=== PATIENT | female | born 1970 | race African-American/Black ===

== ENCOUNTER 2019-06-12 16:18 | Inpatient (IN) ==
[2019-06-12] MEDS ORDERED: AZITHROMYCIN 250 MG TABLET PO STA (17:01)
[2019-06-12 18:34] LABS: Hematocrit 40.3 VOL% (35.7-47.0); Hemoglobin 12.8 GM/DL (12.0-16.0); Immature Granulocytes % 0.3 %; Immature Granulocytes Absolute 0.02 #; Lymphocytes # 1.2 10*3/uL (1.4-4.0); Lymphocytes % 19.9 % (21.3-54.2); Mean Corpuscular HGB Conc 31.8 GM/DL (32-36); Mean Corpuscular Volume 89.4 FL (87-102); Mean Platelet Volume 10.7 FL (9.6-12.0); Monocytes % 4.9 % (1.7-12.7); Neutrophils % 74.9 % (38.7-73.9); Platelet Count 224 T/CUMM (130-400); Red Blood Count 4.51 MC/CUMM (3.8-5.5); Red Cell Distribution Width 12.6 % (9.3-17.3); White Blood Count 5.9 T/CUMM (4-12)
[2019-06-12 18:37] LABS: Calcium 8.7 MG/DL (8.5-10.1); Osmolality,Calculated 268.1 MOS/KG (273-304)
[2019-06-12 18:41] LABS: Ferritin 481.4 ng/ml (8-252)
[2019-06-12] MEDS ORDERED: DEXTROSE 10% 250 ML BAG IV PRN (19:24)
[2019-06-12] MEDS ORDERED: GLUCAGON 1 MG VIAL IM PRN (19:24)
[2019-06-12 19:27] LABS: Lymphocytes 19 % (20-55); Platelet Estimate Normal; Segmented Neutrophils 80 % (50-85); Total Cells Counted 100
[2019-06-12] MEDS: cefTRIAXone 1,000 MG in SYRINGE 1 EACH IV SCH (21:43)
[2019-06-12] MEDS: ENOXAPARIN 40 MG/0.4 ML SYRINGE SUBCUT SCH (21:43)
[2019-06-12] MEDS: ZINC SULFATE 220 MG CAPSULE PO SCH (21:43)
[2019-06-12] MEDS: HYDROXYCHLOROQUINE 200 MG TABLET PO SCH (21:43)
[2019-06-13 06:15] LABS: Basophils % 0.2 % (0.0-0.8); Hematocrit 39.5 VOL% (35.7-47.0); Hemoglobin 12.6 GM/DL (12.0-16.0); Immature Granulocytes % 0.5 %; Immature Granulocytes Absolute 0.03 #; Mean Corpuscular HGB Conc 31.9 GM/DL (32-36); Mean Corpuscular Volume 89.6 FL (87-102); Mean Platelet Volume 10.6 FL (9.6-12.0); Monocytes % 4.9 % (1.7-12.7); Neutrophils % 77.4 % (38.7-73.9); Platelet Count 220 T/CUMM (130-400); Red Blood Count 4.41 MC/CUMM (3.8-5.5); Red Cell Distribution Width 12.6 % (9.3-17.3); White Blood Count 5.8 T/CUMM (4-12)
[2019-06-13 06:38] LABS: Band Neutrophils 1 % (0-10); Lymphocytes 16 % (20-55); Platelet Estimate Adequate; Segmented Neutrophils 80 % (50-85); Total Cells Counted 100
[2019-06-13 06:41] LABS: Alanine Aminotransferase 25 U/L (13-56); Albumin 3.1 G/DL (3.4-5.0); Alkaline Phosphatase 69 U/L (45-117); Aspartate Amino Transferase 25 U/L (0-37); Bilirubin,Total < 0.39 MG/DL (0.2-1.0); Blood Urea Nitrogen 10 MG/DL (7-18); Calcium 8.9 MG/DL (8.5-10.1); Estimated Glom Filtration Rate 94 ML/MIN; Glucose 123 MG/DL (74-106); Osmolality,Calculated 269.1 MOS/KG (273-304); Total Protein 8.5 G/DL (6.4-8.3)
[2019-06-13] MEDS: AZITHROMYCIN 250 MG TABLET PO SCH (08:30)
[2019-06-13] MEDS: HYDROXYCHLOROQUINE 200 MG TABLET PO SCH ×2 (08:30→21:42)
[2019-06-13] MEDS: cefTRIAXone 1,000 MG in SYRINGE 1 EACH IV SCH (21:36)
[2019-06-13] MEDS: ENOXAPARIN 40 MG/0.4 ML SYRINGE SUBCUT SCH (21:43)
[2019-06-14 05:48] LABS: Basophils % 0.8 % (0.0-0.8); Eosinophils % 0.3 % (0.00-10.9); Hematocrit 38.9 VOL% (35.7-47.0); Hemoglobin 12.5 GM/DL (12.0-16.0); Immature Granulocytes % 1.1 %; Immature Granulocytes Absolute 0.04 #; Lymphocytes # 1.6 10*3/uL (1.4-4.0); Lymphocytes % 46.2 % (21.3-54.2); Mean Corpuscular HGB Conc 32.1 GM/DL (32-36); Mean Corpuscular Volume 87.8 FL (87-102); Mean Platelet Volume 10.3 FL (9.6-12.0); Monocytes % 8.8 % (1.7-12.7); Neutrophils % 42.8 % (38.7-73.9); Platelet Count 256 T/CUMM (130-400); Red Blood Count 4.43 MC/CUMM (3.8-5.5); Red Cell Distribution Width 12.7 % (9.3-17.3); White Blood Count 3.5 T/CUMM (4-12)
[2019-06-14 06:16] LABS: Albumin 2.8 G/DL (3.4-5.0); Bilirubin,Total 1.1 MG/DL (0.2-1.0); Calcium 8.8 MG/DL (8.5-10.1); Osmolality,Calculated 270.8 MOS/KG (273-304); Total Protein 8.3 G/DL (6.4-8.3)
[2019-06-14 06:30] LABS: Band Neutrophils 2 % (0-10); Lymphocytes 50 % (20-55); Metamyelocytes 1 %; Nucleated Red Blood Cells 1 (0-5); Platelet Estimate Normal; Segmented Neutrophils 41 % (50-85); Total Cells Counted 100
[2019-06-14 06:31] LABS: Hypochromasia 2+
[2019-06-14] MEDS: AZITHROMYCIN 250 MG TABLET PO SCH (08:31)
[2019-06-14] MEDS: ZINC SULFATE 220 MG CAPSULE PO SCH (20:49)
[2019-06-14] MEDS: ENOXAPARIN 40 MG/0.4 ML SYRINGE SUBCUT SCH (20:49)
[2019-06-15 05:44] LABS: Basophils % 0.6 % (0.0-0.8); Eosinophils % 1.2 % (0.00-10.9); Hematocrit 39.7 VOL% (35.7-47.0); Hemoglobin 12.3 GM/DL (12.0-16.0); Immature Granulocytes % 0.6 %; Immature Granulocytes Absolute 0.02 #; Lymphocytes # 1.6 10*3/uL (1.4-4.0); Lymphocytes % 46.8 % (21.3-54.2); Mean Corpuscular Volume 91.3 FL (87-102); Mean Platelet Volume 11.2 FL (9.6-12.0); Monocytes % 8.5 % (1.7-12.7); Neutrophils % 42.3 % (38.7-73.9); Platelet Count 240 T/CUMM (130-400); Red Blood Count 4.35 MC/CUMM (3.8-5.5); Red Cell Distribution Width 12.5 % (9.3-17.3); White Blood Count 3.4 T/CUMM (4-12)
[2019-06-15 06:20] LABS: Albumin 2.8 G/DL (3.4-5.0); Bilirubin,Total 0.4 MG/DL (0.2-1.0); Calcium 8.7 MG/DL (8.5-10.1); Osmolality,Calculated 267.1 MOS/KG (273-304); Total Protein 7.9 G/DL (6.4-8.3)
[2019-06-15 06:27] LABS: Eosinophils 2 % (0-10); Lymphocytes 36 % (20-55); Platelet Estimate Adequate; Segmented Neutrophils 51 % (50-85); Total Cells Counted 100
[2019-06-15] MEDS: AZITHROMYCIN 250 MG TABLET PO SCH (08:37)
[2019-06-15] MEDS: HYDROXYCHLOROQUINE 200 MG TABLET PO SCH (08:37)
[2019-06-15 12:22] VITALS: BP 136/74
== END 2019-06-15 13:50 | disposition home or self-care (01) | DRG 177 ==
LOC: N.ED 16:18 → N.EDINP 19:24 → N.2E 19:52 → N.2W 21:00
PROVIDERS: ADMIT Family Medicine; ATTEND Family Medicine